=== PATIENT | female | born 1955 | race Caucasian/White ===

== ENCOUNTER 2019-12-19 13:23 | Emergency (ER) | payer OTHER ==
[~2019-12-19] VITALS: Ht 175.3 cm; Wt 116.1 kg
[2019-12-19] MEDS ORDERED: TRAZODONE 150150 M1 PO (13:33)
[2019-12-19] MEDS ORDERED: GABAPENTIN600 M1 PO (13:34)
[2019-12-19] MEDS ORDERED: NEURONTIN300 MG PO (13:34)
[2019-12-19] MEDS ORDERED: GLIPIZIDE 10 MG10 MG PO (13:35)
[2019-12-19] MEDS ORDERED: JANUMET 50-1,01 EACH PO (13:36)
[2019-12-19] MEDS ORDERED: ATORVASTATIN CA80 MG PO (13:37)
[2019-12-19] MEDS ORDERED: QUETIAPINE FUMA50 M1 PO (13:37)
[2019-12-19] MEDS ORDERED: LEVO-T50 MCG PO (13:38)
[2019-12-19] MEDS ORDERED: CHANTIX1 MG PO (13:39)
[2019-12-19 13:57] LABS: HEMOGLOBIN 13.8 gm/dL (12.0-15.0); MCH 26.7 pg (26.0-34.0); MCV 83.4 fL (80.0-100.0); PLATELET COUNT 200 thou/uL (150-400); RBC 5.16 mil/uL (4.20-5.00); RDW 15.5 % (10.5-14.5); WBC 6.3 thou/uL (4.0-11.0)
[2019-12-19 14:00] LABS: ANION GAP 8 mmol/L (7-16); BUN 13 mg/dL (7-18); CALCIUM 9.1 mg/dL (8.5-10.1); CHLORIDE 92 mmol/L (98-107); CO2 27 mmol/L (21-32); CREATININE 0.9 mg/dL (0.6-1.0); GLUCOSE 457 mg/dL (74-106); SODIUM 127 mmol/L (136-145)
[2019-12-19 14:10] LABS: DIRECT BILIRUBIN < 0.1 mg/dL (<0.1-0.2); SGOT 16 U/L (15-37); SGPT 20 U/L (30-65); TOTAL BILIRUBIN 0.3 mg/dL (<0.1-1.0); TOTAL PROTEIN 7.2 g/dL (6.4-8.2); TROPONIN-I <0.06 ng/mL (<0.06)
[2019-12-19 14:41] LABS: ABSOLUTE NEUTROPHILS 3.7 thou/uL (1.4-8.2); ANISOCYTOSIS 1+; LARGE PLATELETS OCCASIONAL; POLYCHROMASIA OCCASIONAL
--- NOTE | 2019-12-19 17:18 | EKG ---
[facility] [place] [address] ELECTROCARDIOGRAM REPORT Name: HUMA ALEXANDRA Room #: REG [facility]#: [id number] Admission: 12/19/19 Attend Phys: Discharge: Date of : 51 Report #: [id number] THIS REPORT FOR: cc: FAM - Family physician unknown FAM - Family physician unknown Ruperto Veronica MD [facility] ~ THIS REPORT FOR: //name// [facility] ED Test Date: 2019-12-19 Test Time: 13:26:17 Pat Name: HUMA ALEXANDRA Department: Room: Gender: F Director Community Organization: [facility] : 1955 Requested By: Mandy Blake Order Number: [id number] MD: Ruperto Veronica Measurements Intervals [place] Rate: 94 P: 78 PA: 200 QRS: -44 QRSD: 130 T: 30 QT: 368 QTc: 461 Interpretive Statements Sinus arrhythmia Ventricular premature complex IVCD, consider atypical RBBB Consider anterior infarct Inferior infarct, age indeterminate Compared to ECG 03/10/2009 21:57:13 Ventricular premature complex(es) now present Sinus tachycardia no longer present Electronically Signed On 12-19-2019 17:17:49 EMBALMER/FUNERAL DIRECTOR by Ruperto Veronica [email or web address] <ELECTRONICALLY SIGNED> By: Ruperto Veronica MD, [facility] 12/19/19 1717 1326 1326 Ruperto Veronica MD, [facility] /EPI
[2019-12-19 17:30] VITALS: BP 145/88
== END 2019-12-19 17:30 | disposition home or self-care (01) ==
LOC: ER 13:23
PROVIDERS: Emergency Medicine
DX: R07.9 Chest pain, unspecified (principal); R09.02 Hypoxemia; E11.65 Type 2 diabetes mellitus with hyperglycemia; I11.0 Hypertensive heart disease with heart failure; I50.9 Heart failure, unspecified; E78.00 Pure hypercholesterolemia, unspecified; E78.5 Hyperlipidemia, unspecified; J44.9 Chronic obstructive pulmonary disease, unspecified; F32.9 Major depressive disorder, single episode, unspecified; Z90.710 Acquired absence of both cervix and uterus; Z90.49 Acquired absence of other specified parts of digestive tract; Z91.19 Patient's noncompliance with other medical treatment and regimen; Z87.891 Personal history of nicotine dependence; Z91.048 Other nonmedicinal substance allergy status; Z88.8 Allergy status to other drugs, medicaments and biological substances

== ENCOUNTER → 2020-04-09 | Outpatient (CLI) | payer OTHER ==
[~2020-04-09] MED LIST: ASA81BEC PO; ATORVASTATIN CA80 MG PO; AVAPRO75 MG PO; CHANTIX1 MG PO; COZAAR 25 MG TA25 M1 PO; DRIZALMA SPRINK60 MG PO; EFFIENT10 MG PO; FUROSEMIDE 40 M40 MG PO; GABAPENTIN600 M1 PO; GLIPIZIDE 10 MG10 MG PO; HYDROXYZINE HCL25 M2 PO; JANUMET 50-1,01 EACH PO; KLOR-CON 1010 MEQ PO; LEVEMIR100 UNIT/1 SUBQ; LEVO-T50 MCG PO; NEURONTIN300 MG PO; PROTONIX40 M2 PO; QUETIAPINE FUMA50 M1 PO; SUBOXONE 8 MG-1 EAC3 SUBLING; TOPROL XL50 MG PO; TRAZODONE 150150 M1 PO; TRULICITY0.75 MG/0. SUBQ; ZETIA10 MG PO
== END ==
LOC: SJCVCIMAG 07:34
PROVIDERS: ATTEND Internal Medicine Cardiovascular Disease
DX: I10 Essential (primary) hypertension (principal); R07.9 Chest pain, unspecified; E78.5 Hyperlipidemia, unspecified; Z87.891 Personal history of nicotine dependence

== ENCOUNTER → 2020-04-16 | Outpatient (CLI) | payer OTHER | LOC: SJCVCIMAG 13:33 | PROVIDERS: ATTEND Internal Medicine Cardiovascular Disease | DX: R00.0 Tachycardia, unspecified (principal); R42 Dizziness and giddiness; I11.0 Hypertensive heart disease with heart failure; I50.9 Heart failure, unspecified; J44.9 Chronic obstructive pulmonary disease, unspecified; Z87.891 Personal history of nicotine dependence; Z79.899 Other long term (current) drug therapy; Z88.8 Allergy status to other drugs, medicaments and biological substances ==

== ENCOUNTER → 2020-04-17 | Outpatient (CLI) | payer OTHER | LOC: SJCVC 11:26 → SJCVCIMAG 11:26 | PROVIDERS: ATTEND Internal Medicine Cardiovascular Disease | DX: I65.21 Occlusion and stenosis of right carotid artery (principal); R07.9 Chest pain, unspecified; R06.00 Dyspnea, unspecified; R94.39 Abnormal result of other cardiovascular function study; I10 Essential (primary) hypertension; R09.89 Other specified symptoms and signs involving the circulatory and respiratory systems; R94.31 Abnormal electrocardiogram [ECG] [EKG]; E78.00 Pure hypercholesterolemia, unspecified; I44.4 Left anterior fascicular block; E87.1 Hypo-osmolality and hyponatremia; J44.9 Chronic obstructive pulmonary disease, unspecified; E11.9 Type 2 diabetes mellitus without complications; C32.0 Malignant neoplasm of glottis; Z90.49 Acquired absence of other specified parts of digestive tract; Z90.710 Acquired absence of both cervix and uterus; Z87.891 Personal history of nicotine dependence ==

== ENCOUNTER 2020-04-22 07:55 | Outpatient (CLI) | payer OTHER ==
[2020-04-22] VITALS (9 sets, daily range): BP systolic 87–136; BP diastolic 68–96
[~2020-04-22] VITALS: Ht 175.3 cm; Wt 117.5 kg
[~2020-04-22 07:55] MED LIST changes: -ASA81BEC PO; -AVAPRO75 MG PO; -COZAAR 25 MG TA25 M1 PO; -DRIZALMA SPRINK60 MG PO; -EFFIENT10 MG PO; -FUROSEMIDE 40 M40 MG PO; -HYDROXYZINE HCL25 M2 PO; -KLOR-CON 1010 MEQ PO; -LEVEMIR100 UNIT/1 SUBQ; -PROTONIX40 M2 PO; -SUBOXONE 8 MG-1 EAC3 SUBLING; -TOPROL XL50 MG PO; -TRULICITY0.75 MG/0. SUBQ; -ZETIA10 MG PO
[2020-04-22 08:49] LABS: HEMATOCRIT 45.4 % (37.0-47.0); HEMOGLOBIN 15.3 gm/dL (12.0-15.0); MCH 28.7 pg (26.0-34.0); MCHC 33.6 g/dL (28.0-37.0); MCV 85.3 fL (80.0-100.0); RBC 5.32 mil/uL (4.20-5.00); RDW 15.3 % (10.5-14.5); WBC 8.6 thou/uL (4.0-11.0)
[2020-04-22 08:56] LABS: CALCIUM 9.3 mg/dL (8.5-10.1); CREATININE 0.9 mg/dL (0.6-1.0); POTASSIUM 3.8 mmol/L (3.5-5.1)
[2020-04-22] MEDS ORDERED: COZAAR 25 MG TA25 M1 PO (08:57)
[2020-04-22] MEDS ORDERED: ZETIA10 MG PO (09:00)
[2020-04-22] MEDS ORDERED: ASA81BEC PO (09:00)
[2020-04-22] MEDS ORDERED: PROTONIX40 M2 PO (09:01)
[2020-04-22] MEDS ORDERED: KLOR-CON 1010 MEQ PO (09:01)
[2020-04-22] MEDS ORDERED: GLIPIZIDE 10 MG10 MG PO (09:02)
[2020-04-22] MEDS ORDERED: AVAPRO75 MG PO (09:02)
[2020-04-22] MEDS ORDERED: HYDROXYZINE HCL25 M2 PO (09:03)
[2020-04-22] MEDS ORDERED: LEVEMIR100 UNIT/1 SUBQ (09:05)
[2020-04-22] MEDS ORDERED: DRIZALMA SPRINK60 MG PO (09:06)
[2020-04-22] MEDS ORDERED: FUROSEMIDE 40 M40 MG PO (09:07)
[2020-04-22] MEDS ORDERED: SUBOXONE 8 MG-1 EAC3 SUBLING (09:08)
[2020-04-22] MEDS ORDERED: TRULICITY0.75 MG/0. SUBQ (09:09)
[2020-04-22 18:27] LABS: HEMATOCRIT 38.4 % (37.0-47.0); HEMOGLOBIN 13.2 gm/dL (12.0-15.0)
--- NOTE | 2020-04-22 18:40 | NUR ---
SUPERVISOR CONCRETE STONE FABRICATING ACTIVATED-SEE FLOWSHEET
--- NOTE | 2020-04-22 20:15 | NUR ---
RECIEVED PATIENT FROM CATH ALB AT 1615, ALERT AND ORIENTED 4 AND VSS. RT GRION SITE HEMATOMA PRESENT, ASSESSMENT DOCUMENTED ON THE POST CARDIAC FOLLOW SHEET. PATIENT HEMATOMA INCREASED IN SIZE AND DR NGO NOTIFIED. PRESSURE HELD FOR 45 MINUTES, RAPID RESPOSE ACTIVATED AND DR NGO NOTIFIED. DR NGO SEEN PATIENT AND NEW ORDERS RECEIVED. 20 MINTES PRESSURE HELD, AND MARKED HEMATOMA WITH MARKER. PATIENT C/O CH. BACK PAIN AND WAS REPOSITIONED. REPORT GIVEN TO RN AND WILL CONTINUE WITH POC.
[2020-04-23] VITALS (7 sets, daily range): BP systolic 86–152; BP diastolic 52–87
[2020-04-23 06:00] LABS: HEMATOCRIT 36.6 % (37.0-47.0); HEMOGLOBIN 12.2 gm/dL (12.0-15.0); MCH 28.8 pg (26.0-34.0); MCHC 33.4 g/dL (28.0-37.0); RBC 4.25 mil/uL (4.20-5.00); RDW 15.2 % (10.5-14.5); WBC 9.9 thou/uL (4.0-11.0)
--- NOTE | 2020-04-23 06:19 | NUR ---
PATIENTS CARES WERE ASSUMED AT SHIFT CHANGE. PATIENT WAS ASSESSED AND MEDS WERE PASSED. PATIENT TAALKED ALOT ABOUT HER GRANDSON,WE DID EXCHANGE STORIES ABOUT OUR GRANDSONS. HOURLY ROUNDS WERE MADE. PATIENT IS READY TO GO HOME.
[2020-04-23 06:40] LABS: ALBUMIN 2.7 g/dL (3.4-5.0); ANION GAP 8 mmol/L (7-16); BUN 11 mg/dL (7-18); CALCIUM 8.2 mg/dL (8.5-10.1); CHLORIDE 97 mmol/L (98-107); CO2 27 mmol/L (21-32); CREATININE 0.7 mg/dL (0.6-1.0); GLUCOSE 206 mg/dL (74-106); POTASSIUM 3.7 mmol/L (3.5-5.1); SGOT 19 U/L (15-37); SGPT 15 U/L (30-65); SODIUM 132 mmol/L (136-145); TOTAL BILIRUBIN 0.5 mg/dL (0.2-1.0); TOTAL PROTEIN 6.4 g/dL (6.4-8.2); TROPONIN-I <0.06 ng/mL (<0.06)
--- NOTE | 2020-04-23 07:58 | EKG ---
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: Kandis BRUNO : 1955 Requested By: Timoteo Valentin Order Number: [id number] MD: Ruperto Veronica Measurements Intervals [place] Rate: 92 P: 50 [place]: 190 QRS: -52 QRSD: 128 T: 20 QT: 396 QTc: 490 Interpretive Statements Sinus rhythm RBBB and LAFB Poor R wave progression Compared to ECG 12/19/2019 13:26:17 Ventricular premature complex(es) no longer present Electronically Signed On 04-23-2020 7:58:05 CDT by Ruperto Veronica [email or web address] <ELECTRONICALLY SIGNED> By: Ruperto Veronica MD, [facility] 04/23/20 0758 [phone] Ruperto Veronica MD, [facility] /EPI
--- NOTE | 2020-04-23 08:15 | EKG ---
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: Brian HILL : 1955 Requested By: Timoteo Valentin Order Number: [id number] MD: Ruperto Veronica Measurements Intervals [place] Rate: 104 P: 54 TN: 187 QRS: -58 QRSD: 122 T: 19 QT: 378 QTc: 498 Interpretive Statements Sinus tachycardia Incomplete right bundle branch block Left anterior hemiblock Anterior infarct, old Baseline wander in lead(s) II,III,aVF Compared to ECG 04/22/2020 08:51:18 No significant change was found Electronically Signed On 04-23-2020 8:14:46 CDT by Ruperto Veronica [email or web address] <ELECTRONICALLY SIGNED> By: Ruperto Veronica MD, [facility] 04/23/20813 4 4 Ruperto Veronica MD, [facility] /EPI
[2020-04-23] MEDS ORDERED: TOPROL XL50 MG PO (08:24)
[2020-04-23] MEDS ORDERED: EFFIENT10 MG PO (08:24)
--- NOTE | 2020-04-23 09:08 | NUR ---
SPIRITUAL CARE CONSULT [phone] WAS COMPLETED BY THIS RN POST PARTUM. 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
[2020-04-23 13:39] LABS: HEMOGLOBIN 11.3 gm/dL (12.0-15.0); MCH 29.5 pg (26.0-34.0); MCHC 34.4 g/dL (28.0-37.0); MCV 85.8 fL (80.0-100.0); RBC 3.85 mil/uL (4.20-5.00); RDW 15.2 % (10.5-14.5); WBC 10.5 thou/uL (4.0-11.0)
--- NOTE | 2020-04-23 14:17 | NUR ---
ASSUMED CARE AT SHIFT CHANGE, ALERT AND ORIENTED X4. RT GRION SITE HEMATOMA SOFT AND PURPLE IN COLOR, NO CAHGE FROM LAST NIGHT ASSESSMENT. PATIENT REPORTED TENDERNESS TO RT GRION. BP 87/61 AND HR 98-110/MIN, FRIEDA ICING MACHINE OPERATOR NOTIFIED ORDERS RECEIVED AND APPLIED. BP 118/61, AND DENIES ANY SYMTOMPS. WILL CONTINUE TO MONITOR.
--- NOTE | 2020-04-23 16:49 | NUR ---
Patient to dc home today with need of home health care. Verified address and PCP. Patient has no preference for HH agency. [facility] but need to gather some information from Dr Galvan office.
--- NOTE | 2020-04-23 18:32 | CATHLAB ---
[facility] [place] [address] INVASIVE PROCEDURE REPORT Name: HUMA ALEXANDRAILLE Room #: DEP JASON Guzman#: [id number] Admission: 04/22/20 Attend Phys: Timoteo Valentin MD, Discharge: 04/23/20 Date of : 51 Report #: [id number] THIS REPORT FOR: cc: FAM - Family physician unknown FAM - Family physician unknown Timoteo Valentin MD [facility] ~ APPROVED REPORT Study performed: 04/22/2020 12:10:21 Patient Details Patient Status: Out-Patient Room #: The patient is a 64 year-old female Event Personnel Timoteo Valentin Starting Gate Driver, Reji Smith RTR Scrub, Twila Hughes RTR, STRIPER MACHINE Monitor, Morelia Nguyen RN RN, Dmitry Soria RTR Monitor, Aniyah Gould RTR Monitor Procedures Performed Art Access - R femoral artery* Left Heart Cath w/or w/o Coronaries [id number] [facility] w/wo Plasty Single RCA 079808 Aortogram Abdominal Peripheral Angio 377852 Hemostasis w/ Mynx 29796 Initial Mod Sed Same Phys/QHP Gr5y 351949 17846 Mod Sed Same Phys/QHP Ea 665774 Indication Chest pain Procedure Narrative The Right Groin^ was infiltrated with 1% Lidocaine subcutaneous anesthesia. A PINNACLE 6FR Sheath #[id number] sheath was inserted into the RFA^. Coronary angiography was performed using coronary diagnostic catheters. The right coronary system was accessed and visualized with a JR4 catheter. The left coronary system was accessed and visualized with a JL4 catheter. The left ventricle was accessed and visualized with a PIGTAIL catheter. Left ventriculogram was performed in 30 degree projection. Closure device was deployed with a 6 Fr MYNXGRIP 6/7F #[id number]. The patient tolerated the procedure well and there were no complications associated with the procedure. A hematoma occurred. Intraoperative Conscious Sedation [facility] [address] [place] [address] INVASIVE PROCEDURE REPORT Name: HUMA ALEXANDRA Room #: [facility] Thomas#: [id number] Admission: 04/22/20 Attend Phys: Timoteo Valentin, Discharge: 04/23/20 Date of : 51 Report #: [id number] Sedation start time: 1310 Case end Time: 1440 Fentanyl 300 mcg Versed 4 mg Fluoro Time: 15.55 minutes Dose: DAP 94249.30 cGycm2 2274 mGy Contrast Type and Amount: Omnipaque 240 ml Hemodynamics The aortic pressure is 145/76 mmHg with a mean of 98 mmHg. The left ventricular pressure is 152/7 mmHg with a mean of mmHg. The left ventricular end diastolic pressure is 23 mmHg. PCI Technique Lesion Percutaneous coronary intervention was performed on the mid right coronary artery. A LAUNCHER 6FR KELLY #[id number] Guide Catheter was used to engage the ostium. A Luge Wire .014 x 182CM #[id number] Interventional Guidewire was used to cross the lesion. BALLOON DILATION A Balloon catheter Sprinter OTW 2.5 x 15 #[id number] was inserted and inflated up to 6.00atm for 23seconds. Additional Inflation: 10.00atm for 35seconds. Additional Inflation: 12.00atm for 28seconds. ADDITIONAL INFLATION WAS 16 ATMS FOR 38 SECS STENT DEPLOYMENT A drug-eluting stent RESOLUTE NATHALY OTW 2.75 X 12 #[id number] was inserted and inflated up to 18.00atm for 29seconds. POST STENT DEPLOYMENT BALLOON DILATION A Balloon catheter TREK NC OTW 3.25 X 12 #[id number] was inserted and inflated up to 18.00atm for 41seconds. Conclusion #1. Successful PTCA stent of a mid right coronary high-grade lesion. Extremely tortuous and calcified vessel. Placement of a 2.75 x 12 resolute nathaly stent postdilated with a noncompliant 3.25 to 3.3 mm INDRA grade III flow. Extreme technical difficulty requiring guide liner and multiple attempts of delivering balloon and stent finally successful. Anatomically dominant vessel. Subtle soft filling defect is noted proximal to the stent may be pseudo-stenosis due to the stent does not respond to nitro. Does not appear to be flow-limiting. Due to time contrast and patient anxiousness have stopped procedure pain-free without any evidence of ongoing ischemic changes. Will treat this medically at this point. #2 normal left jugular size and systolic function lower limits of [address] [address] INVASIVE PROCEDURE REPORT Name: HUMA ALEXANDRA Room #: DEP Thomas#: [id number] Admission: 04/22/20 Attend Phys: Timoteo Valentin, Discharge: 04/23/20 Date of : 51 Report #: [id number] normal EF 50 to 55% #3 abdominal aortogram revealing mild aortic calcification and tortuosity no aneurysm. #4 left main free of disease giving rise to LAD and circumflex #5 LAD proximal calcification with mild diffuse irregularities. This extends around the apex. Also a large diagonal system comes off proximally mildly diseased. #6 nondominant circumflex artery mildly diseased Recommendations and plan: Continue aggressive risk factor modification. Minx closure device utilized with partial success for with moderate right groin hematoma. Hemodynamically stable will follow closely. We will follow this subtle filling proximal to stent. Would need to utilize again guide support and guide liner for intervention. Transfer to CCU to follow post stent protocol. Dual antiplatelet therapy has been initiated. <ELECTRONICALLY SIGNED> By: Timoteo Valentin MD, [facility] 04/23/201831 31 31 Timoteo Valentin MD, FACC /INF
== END 2020-04-23 16:18 | disposition home or self-care (01) ==
LOC: CATH 07:55 → 2N 16:19 → CATH 04-23 16:18
PROVIDERS: Nurse Practitioner Adult Health; ATTEND Internal Medicine Cardiovascular Disease
DX: R07.9 Chest pain, unspecified (principal); I25.10 Atherosclerotic heart disease of native coronary artery without angina pectoris; I70.0 Atherosclerosis of aorta; R94.39 Abnormal result of other cardiovascular function study; I11.0 Hypertensive heart disease with heart failure; I50.9 Heart failure, unspecified; J44.9 Chronic obstructive pulmonary disease, unspecified; E78.00 Pure hypercholesterolemia, unspecified; E78.5 Hyperlipidemia, unspecified; F32.9 Major depressive disorder, single episode, unspecified; E66.09 Other obesity due to excess calories; Z98.890 Other specified postprocedural states; Z79.899 Other long term (current) drug therapy; Z82.49 Family history of ischemic heart disease and other diseases of the circulatory system; Z90.710 Acquired absence of both cervix and uterus; Z90.49 Acquired absence of other specified parts of digestive tract; Z87.891 Personal history of nicotine dependence; Z91.041 Radiographic dye allergy status; Z79.82 Long term (current) use of aspirin
CPT/HCPCS: 10081

== ENCOUNTER → 2020-04-30 | Outpatient (CLI) | payer OTHER ==
[~2020-04-30] MED LIST changes: +ASA81BEC PO; +AVAPRO75 MG PO; +COZAAR 25 MG TA25 M1 PO; +DRIZALMA SPRINK60 MG PO; +EFFIENT10 MG PO; +FUROSEMIDE 40 M40 MG PO; +HYDROXYZINE HCL25 M2 PO; +KLOR-CON 1010 MEQ PO; +LEVEMIR100 UNIT/1 SUBQ; +PROTONIX40 M2 PO; +SUBOXONE 8 MG-1 EAC3 SUBLING; +TOPROL XL50 MG PO; +TRULICITY0.75 MG/0. SUBQ; +ZETIA10 MG PO
== END ==
LOC: SJCVCIMAG 12:44
PROVIDERS: ATTEND Internal Medicine Cardiovascular Disease
DX: R10.31 Right lower quadrant pain (principal); R19.09 Other intra-abdominal and pelvic swelling, mass and lump; Z87.891 Personal history of nicotine dependence

== ENCOUNTER → 2020-05-23 | Outpatient (CLI) | payer OTHER | LOC: SJCVC 12:41 | PROVIDERS: ATTEND Internal Medicine Cardiovascular Disease | DX: I45.2 Bifascicular block (principal); R94.31 Abnormal electrocardiogram [ECG] [EKG]; I25.10 Atherosclerotic heart disease of native coronary artery without angina pectoris; I10 Essential (primary) hypertension; E78.00 Pure hypercholesterolemia, unspecified; E11.9 Type 2 diabetes mellitus without complications; I11.0 Hypertensive heart disease with heart failure; I50.9 Heart failure, unspecified; J44.9 Chronic obstructive pulmonary disease, unspecified; Z82.49 Family history of ischemic heart disease and other diseases of the circulatory system; Z87.891 Personal history of nicotine dependence; Z79.82 Long term (current) use of aspirin; Z79.899 Other long term (current) drug therapy ==

== ENCOUNTER → 2020-10-15 | Outpatient (CLI) | payer OTHER | LOC: SJCVC 10:12 | PROVIDERS: ATTEND Internal Medicine Cardiovascular Disease | DX: R94.31 Abnormal electrocardiogram [ECG] [EKG] (principal); I45.2 Bifascicular block; I25.10 Atherosclerotic heart disease of native coronary artery without angina pectoris; E78.00 Pure hypercholesterolemia, unspecified; E11.9 Type 2 diabetes mellitus without complications; I42.9 Cardiomyopathy, unspecified; I11.0 Hypertensive heart disease with heart failure; I50.9 Heart failure, unspecified; J44.9 Chronic obstructive pulmonary disease, unspecified; Z87.891 Personal history of nicotine dependence; Z79.82 Long term (current) use of aspirin; Z79.899 Other long term (current) drug therapy; Z88.8 Allergy status to other drugs, medicaments and biological substances ==

== ENCOUNTER 2021-04-29 09:12 | Emergency (ER) | payer OTHER ==
[~2021-04-29] VITALS: Ht 175.3 cm; Wt 100.2 kg
[2021-04-29 09:19] VITALS: BP 115/55
== END 2021-04-29 10:15 | disposition home or self-care (01) ==
LOC: ER 09:12
DX: S61.512A Laceration without foreign body of left wrist, initial encounter (principal); E10.9 Type 1 diabetes mellitus without complications; I25.10 Atherosclerotic heart disease of native coronary artery without angina pectoris; J44.9 Chronic obstructive pulmonary disease, unspecified; I11.0 Hypertensive heart disease with heart failure; I50.9 Heart failure, unspecified; F32.9 Major depressive disorder, single episode, unspecified; E78.00 Pure hypercholesterolemia, unspecified; G25.81 Restless legs syndrome; Z90.710 Acquired absence of both cervix and uterus; Z98.890 Other specified postprocedural states; Z79.899 Other long term (current) drug therapy; Z87.891 Personal history of nicotine dependence; Z88.3 Allergy status to other anti-infective agents; Z91.09 Other allergy status, other than to drugs and biological substances; W26.0XXA Contact with knife, initial encounter; Y93.89 Activity, other specified; Y92.89 Other specified places as the place of occurrence of the external cause; Y99.8 Other external cause status

== ENCOUNTER → 2021-07-18 | Outpatient (CLI) | payer OTHER | LOC: SJCVCIMAG 09:06 | PROVIDERS: ATTEND Internal Medicine Cardiovascular Disease | DX: R94.31 Abnormal electrocardiogram [ECG] [EKG] (principal); I45.10 Unspecified right bundle-branch block; I05.9 Rheumatic mitral valve disease, unspecified; I25.10 Atherosclerotic heart disease of native coronary artery without angina pectoris; I10 Essential (primary) hypertension; E78.00 Pure hypercholesterolemia, unspecified; E11.9 Type 2 diabetes mellitus without complications; I42.9 Cardiomyopathy, unspecified; I11.0 Hypertensive heart disease with heart failure; I50.9 Heart failure, unspecified; F32.9 Major depressive disorder, single episode, unspecified; G25.81 Restless legs syndrome; Z86.16 Personal history of COVID-19; Z82.49 Family history of ischemic heart disease and other diseases of the circulatory system; Z87.891 Personal history of nicotine dependence; Z79.82 Long term (current) use of aspirin; Z79.899 Other long term (current) drug therapy; Z88.8 Allergy status to other drugs, medicaments and biological substances ==